=== PATIENT | female | born 1975 | race Caucasian/White ===

== ENCOUNTER 2019-08-07 10:58 | Outpatient (CLI) | payer OTHER, SELFPAY ==
--- NOTE | 2019-08-07 11:00 | MM_ITS ---
WS: [id number] SCREENING DIGITAL MAMMOGRAM WITH CAD HISTORY: SCREENING COMPARISON: 04/25/2018 Bilateral CC and MLO views submitted. Computer aided detection analyzed. Breast composition: There are scattered areas of fibroglandular density. No suspicious masses, microc alcifications or architectural distortion. MM/[place] [id number] IMPRESSION: BI-RADS: 1-Negative FOLLOW UP: 1 Year Follow-up
== END 2019-08-07 10:59 | disposition home or self-care (01) ==
LOC: RADSHAW 10:58
PROVIDERS: PCP Electrodiagnostic Medicine; Visit Provider Electrodiagnostic Medicine
DX: Z12.31 Encounter for screening mammogram for malignant neoplasm of breast (principal)
CPT/HCPCS: 77067

== ENCOUNTER 2019-09-07 14:33 | Outpatient (CLI) | payer OTHER, SELFPAY ==
--- NOTE | 2019-09-07 14:50 | US_ITS ---
WS: [id number] TRANSABDOMINAL PELVIC AND TRANSVAGINAL PELVIC ULTRASOUND HISTORY: PELVIC PERINEAL PAIN/ LLQ ABD PAIN COMPARISON: None available. Uterus: 9.1 cm x 5.5 cm x 4.3 cm. Normal size anteverted uterus. No fibroid or mass. Small nabothian cysts. Endometrium: 1.5 cm. Endometrium is mildly heterogeneous and top normal size. No discrete mass is shania ntified. Right ovary: 3.4 cm x 2.7 cm x 1.8 cm. Small follicles, normal size and vascularity. Left ovary: 2.3 cm x 2.0 cm x 1.8 cm. Small follicles, normal size and vascularity. No free fluid. US/US pelvic with transvaginal IMPRESSION: 1. Endometrium is top normal size and mildly heterogeneous but no mass identif ied. 2. Normal adnexa.
== END 2019-09-07 14:34 | disposition home or self-care (01) ==
PROVIDERS: PCP Electrodiagnostic Medicine; Visit Provider Electrodiagnostic Medicine
DX: R10.2 Pelvic and perineal pain (principal); R10.32 Left lower quadrant pain
CPT/HCPCS: 76830; 76856

== ENCOUNTER → 2019-11-22 15:52 | Outpatient (BNVA) | payer OTHER, SELFPAY | PROVIDERS: PCP Electrodiagnostic Medicine; Visit Provider Nurse Practitioner Women's Health | DX: N93.9 Abnormal uterine and vaginal bleeding, unspecified (principal) | CPT/HCPCS: 76830 ==

== ENCOUNTER 2020-11-18 10:53 | Emergency (ER) | payer OTHER, SELFPAY ==
[2020-11-18] VITALS (19 sets, daily range): BP systolic 132–161; BP diastolic 81–107; PULSE 81–96; RESP 9–21; TEMP 36.9; O2SAT 95–100
--- NOTE | 2020-11-18 11:12 | ED_ITS ---
HPI - Chest Pain General: Chief Complaint: Chest Pain Stated Complaint: HTN/FLUCTUATING;HEART FLUTTERING;MID BACK PAIN Time Seen by Provider: 11/18/20 11:12 History of Present Illness: HPI narrative: Ms Hughes is a 45-year-old lady without significant past medical history presents to the emergency department due to chest discomfort and generalized malaise. Symptom onset was 6 days ago and subacute. She initially noted some discomfort that was on the left po sterior back that radiate around. She additionally notes intermittent episodes of fluttering in her chest and chest discomfort in the middle of her chest which she describes as a burning sensation. She has associated generalized malaise but no other focal specific typical cardiac features. She has checked her blood pressure number of times and it has been elevated. No history of hypertension. She was previously on TXA for abnormal uterine bleeding however is not currently taking that as she completed therapy without improvement in symptoms. She additionally has prescription for Escitalopram however does not take it regularly and estimates last time that she took it was about 3 weeks ago. Overall the intensity of symptoms is mild to moderate. The course has persisted. No other specific exacerbating or alleviating factors identified. She denies similar episodes in the past. She does vape but does not smoke. Negative family history for early cardiac Review of Systems General: Reports: 10 or more systems reviewed and unremarkable except in HPI and below PFS ED PFSH: Medical History (Updated 11/18/20 @ 14:37 by Garret Davis MD) No pertinent past medical history neghx: htn,dm,thyroid,dvt/pe Surgical History H/O tubal ligation (~1997) History of tonsillectomy and adenoidectomy Family History Grandmother Diabetes Maternal grandmother Family history of thyroid problem Maternal grandmother Mother Family history of thyroid problem Family/Other Family history of thyroid problem Maternal aunts Maternal uncles Father Heart disease Hyperlipidemia Hypertension Denies family history of Colon cancer Ovarian cancer Breast cancer Uterine cancer Stroke Social History Additional social history: - Tobacco use: Current everyday vape--no nicotine; Former smoker; Quit 2009 Alcohol use: Social Drug use: Denies Female Reproductive History: Date of last menstrual period: 10/29/20 Physical Exam Narrative: EXAM NARRATIVE: GENERAL/CONSTITUTIONAL - well-appearing. No acute distress. Obese. Eyes - PERRL, no conjunctival injection ENMT - Atraumatic external nose and ears. Moist mucous membranes NECK - supple. trachea midline CARDIOVASCULAR - regular rate and rhythm. Peripheral pulses 2+ and equal RESPIRATORY -clear to auscultation bilaterally. No retractions or accessory muscle use. ABDOMEN/GI - Nontender. Nondistended. No tenderness to percussion or evidence of peritonitis MSK - Extremities without obvious deformity or tenderness to palpation SKIN - Warm, Dry NEURO - alert and appropriately oriented. strength and sensation intact. Moves all extremities equally. PSYCH - Appropriate mood and affect Course ED course: - Patient was seen and evaluated by me at bedside - Patient placed on cardiac monitors, IV access obtained - Initial evaluation notable for no acute distress, nontoxic appearance. - Labs notable for no significant abnormality, no evidence of endorgan dysfunction, troponin negative greater than 6 hours from symptom onset - Imaging notable for no lobar consolidation or pneumothorax - Upon serial reexamination after treatment the patient was similar - Based on patient history, evaluation, labs, and imaging as interpreted the most likely cause of the patient's condition is unclear. I discussed heart score methodology and risk stratification and offered the patient inpatient stress testing. She was comfortable with follow-up. - The results of ED evaluation were discussed with the patient including prescriptions and/or symptomatic cares (if applicable) including appropriate and responsible use, followup plan, and return precautions. The patient verbalized understanding and felt safe for discharge. - Patient discharged in satisfactory condition. Vital Signs: Vital signs: Vital Signs Temperature 98.4 F 11/18/20 11:06 Pulse Rate 81 11/18/20 14:30 Respiratory Rate 20 H 11/18/20 14:30 Blood Pressure 135/90 11/18/20 14:30 Pulse Oximetry 100 11/18/20 14:30 MDM - Chest Pain Medical Records: Attestation: I reviewed the patient's medical records. Lab Data: Attestation: I reviewed the patient's lab results. Labs: Lab Results 11/18/20 11/18/20 11/18/20 11:42 11:42 11:42 WBC 9.1 10^3/uL 10^3/ uL (4.0-10.0) RBC 4.31 10^6/uL 10^6 /uL (4.1-5.3) Hgb 12.4 g/dL g/dL (11.5-15.3) Hct 39.2 % % (37.0-47.0) MCV 91.0 fl fl (81-99) MCH 28.8 pg pg (28.0-34.0) MCHC 31.6 g/dL g/dL (30.0-36.0) RDW 13.4 % % (12.1-15.1) Plt Count 333 10^3/cmm 10^3 /cmm (130-400) MPV 9.7 fL fL (7.4-10.4) Neut % (Auto) 68.3 % % Lymph % (Auto) 20.0 % % [place] % (Auto) 7.7 % % Eos % (Auto) 2.6 % % Baso % (Auto) 0.6 % % Neut # (Auto) 6.20 10^3/uL 10^3 /uL (1.8-7.7) Lymph # (Auto) 1.8 10^3/uL 10^3/ uL (0.8-4.8) [place] # (Auto) 0.7 10^3/uL 10^3/ uL (0.2-0.9) Eos # (Auto) 0.2 10^3/uL 10^3/ uL (0.0-0.8) Baso # (Auto) 0.1 10^3/uL 10^3/ uL (0.0-0.1) Nucleated RBC % (a uto) 0 % % Nucleated RBCs # 0.0 /100WBC /100W BC Sodium 137 mmol/L mmol/L (136-145) Potassium 4.2 mmol/L mmol/L (3.5-5.1) Chloride 101 mmol/L mmol/L (98-107) Carbon Dioxide 26 mmol/L mmol/L (22-29) Anion Gap 14.2 (5-19) BUN 8 mg/dL mg/dL (6-20) Creatinine 0.7 mg/dL mg/dL (0.5-0.9) GFR Calculation 90.1 mL/min mL/mi n (90-130) Glucose 88 mg/dL mg/dL (65-115) Calculated Osmolal ity 282 mOsm/kg L mOs m/kg (285-295) Calcium 9.4 mg/dL mg/dL (8.5-10.5) Total Bilirubin 0.2 mg/dL mg/dL (0.15-1.2) AST 19 U/L U/L (0-32) ALT 29 U/L U/L (0-33) Alkaline Phosphata se 82 IU/L IU/L (35-105) Troponin T Baselin e 6 ng/L ng/L (0-10) Total Protein 6.6 g/dL g/dL (6.6-8.7) Albumin 4.1 g/dL g/dL (3.5-5.2) Globulin 2.5 g/dL g/dL (1.3-4.6) TSH 2.42 uIU/mL uIU/m L (0.27-4.20) Urine Color Urine Appearance Urine pH Ur Specific Gravit y Urine Protein Urine Glucose (UA) Urine Ketones Urine Blood Urine Nitrate Urine Bilirubin Urine Urobilinogen Ur Leukocyte Tiffany ase SARS-CoV-2 Ag (Rap id) 11/18/20 11/18/20 13:08 13:08 WBC RBC Hgb Hct MCV MCH MCHC RDW Plt Count MPV Neut % (Auto) Lymph % (Auto) [place] % (Auto) Eos % (Auto) Baso % (Auto) Neut # (Auto) Lymph # (Auto) [place] # (Auto) Eos # (Auto) Baso # (Auto) Nucleated RBC % (a uto) Nucleated RBCs # Sodium Potassium Chloride Carbon Dioxide Anion Gap BUN Creatinine GFR Calculation Glucose Calculated Osmolal ity Calcium Total Bilirubin AST ALT Alkaline Phosphata se Troponin T Baselin e Total Protein Albumin Globulin TSH Urine Color Straw (Yellow) Urine Appearance Clear (CLEAR) Urine pH 6.5 (5-7) Ur Specific Gravit y 1.005 (1.005-1.030) Urine Protein Neg (Negative) Urine Glucose (UA) Norm (Normal) Urine Ketones Negative (Negative) Urine Blood Neg (Negative) Urine Nitrate Negative (Negative) Urine Bilirubin Neg (Negative) Urine Urobilinogen Norm mg/dL mg/dL (Negative) Ur Leukocyte Tiffany ase Negative (Negative) SARS-CoV-2 Ag (Rap id) Negative (Negative) EKG Data^: EKG 1: Attestation: I personally reviewed and interpreted this EKG as follows: EKG interpretation date: 11/18/20 EKG interpretation time: 11:07 Interpretation: Twelve-lead EKG shows a regular sinus rhythm at a rate of 89. AL interval 145, QRS duration 89, QTc 377. Normal axis, nonspecific ST segment abnormality in lead III. Interpretation: Sinus rhythm, nonspecific ST segment abnormality. EKG 2: Attestation: I personally reviewed and interpreted this EKG as follows: EKG interpretation date: 11/18/20 EKG interpretation time: 13:30 Prior EKG tracings: available for review Interpretation: Twelve-lead EKG shows a regular sinus rhythm at a rate of 81. AL interval 146, QRS duration 102, QTc 409. Normal axis. Interpretation: Sinus rhythm, nonspecific ST segment abnormalities, similar to prior. Discharge Plan Discharge Patient Disposition: Home Clinical Impression: Chest discomfort, Hypertension Condition: Stable Prescriptions: New hydrochlorothiazide 12.5 mg tablet 12.5 mg PO DAILY Qty: 30 RF: 0 Discharge Orders: Discharge ED (Routine); Ordered 11/18/20 Ordered By: Garret Davis Referrals: Jaxson Soto DO [Primary Care Provider] - Discharge Diet: Low Salt, Low Cholesterol and Low Fat Discharge Activity: Resume usual activity Patient Instructions: Chest Pain (ED), Hypertension (ED) Activity Restrictions/Additional Instructions: Thank you for visiting the emergency department. You were seen and evaluated for chest discomfort and associated malaise. The exact cause of your symptoms is unclear. You were found to be hypertensive. As discussed we recommend outpa tient stress test and will start you on an antihypertensive medication. This medication requires repeat blood labs in 1 week to ensure no electrolyte abnormalities have developed. Please follow-up with your primary care provider. Please return to the emergency department for anything that you are concerned about and feel needs emergency department evaluation. Coding Level of Care Code ED Fretted Instrument Repairer for Jw Calvert
--- NOTE | 2020-11-18 11:20 | XRR_ITS ---
PROCEDURE INFORMATION: Exam: XR Chest Exam date and time: 11/18/2020 11:20 AM Age: 45 years old Clinical indication: Pain; Patient HX: Chest discomfort and generalized malaise. Symptom onset was 6 days ago and subacute. She initially noted some discomfort that was on the left posterior back that radiate around. She additionally notes intermittent episodes of fluttering in her chest and chest discomfort in the middle of her chest which she describes as a burning sensation. ; Additional info: SOB TECHNIQUE: Imaging protocol: XR of the chest. Views: 1 view. Total images: 1 COMPARISON: No relevant prior studies available. FINDINGS: Lungs: Unremarkable. No consolidation. Pleural spaces: Unremarkable. No pleural effusion. No pneumothorax. Heart/Mediastinum: Unremarkable. No cardiomegaly. Bones/joints: Unremarkable. XR/XR chest 1V portable [id number] IMPRESSION: No acute findings.
--- NOTE | 2020-11-18 11:20 | ECG_ITS ---
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 Measurements Intervals [place] Rate: 89 P: 27 DE: 145 QRS: 2 QRSD: 89 T: 30 QT: 331 QTc: 403 Interpretive Statements SINUS RHYTHM INTERPRETATION BASED ON A DEFAULT AGE OF 40 YEARS No previous ECG available for comparison Electronically Signed On 11-19-2020 23:14:54 CDT by Mauricio Tobin M.D. [id number] f
[2020-11-18 11:52] LABS: Basophils # 0.1 10^3/uL (0.0-0.1); Basophils % 0.6 %; Eosinophils # 0.2 10^3/uL (0.0-0.8); Eosinophils % 2.6 %; Hematocrit 39.2 % (37.0-47.0); Hemoglobin 12.4 g/dL (11.5-15.3); Lymphocytes # 1.8 10^3/uL (0.8-4.8); Mean Corpuscular HGB Conc 31.6 g/dL (30.0-36.0); Mean Corpuscular Hemoglobin 28.8 pg (28.0-34.0); Mean Platelet Volume 9.7 fL (7.4-10.4); Monocytes # 0.7 10^3/uL (0.2-0.9); Monocytes % 7.7 %; Neutrophils % 68.3 %; Nucleated Red Blood Cells % 0 %; Platelet Count 333 10^3/cmm (130-400); Red Blood Count 4.31 10^6/uL (4.1-5.3); Red Cell Distribution Width 13.4 % (12.1-15.1); White Blood Count 9.1 10^3/uL (4.0-10.0)
[2020-11-18] MEDS: sodium chloride 0.9% 1,000 ML 999 ML IV (12:02)
[2020-11-18 12:15] LABS: Troponin(5th) Baseline 6 ng/L (0-10)
[2020-11-18 12:24] LABS: Alanine Aminotransferase 29 U/L (0-33); Albumin Level 4.1 g/dL (3.5-5.2); Alkaline Phosphatase 82 IU/L (35-105); Anion Gap 14.2 (5-19); Aspartate Amino Transferase 19 U/L (0-32); Blood Urea Nitrogen 8 mg/dL (6-20); Calcium 9.4 mg/dL (8.5-10.5); Carbon Dioxide 26 mmol/L (22-29); Chloride 101 mmol/L (98-107); Globulin 2.5 g/dL (1.3-4.6); Glomerular Filtration Rate 90.1 mL/min (90-130); Glucose 88 mg/dL (65-115); Osmolality Calculated 282 mOsm/kg (285-295); Potassium 4.2 mmol/L (3.5-5.1); Sodium 137 mmol/L (136-145); Thyroid Stimulating Hormone 2.42 uIU/mL (0.27-4.20); Total Bilirubin 0.2 mg/dL (0.15-1.2); Total Protein 6.6 g/dL (6.6-8.7)
[2020-11-18 13:18] LABS: Add Urine Microscopic? NO; Charge for UA Resulting for Rev
--- NOTE | 2020-11-18 13:20 | ECG_ITS ---
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 Measurements Intervals [place] Rate: 81 P: 0 [place]: 146 QRS: -13 QRSD: 102 T: -28 QT: 371 QTc: 433 Interpretive Statements SINUS RHYTHM Compared to ECG 11/18/2020 11:05:38 No significant changes Electronically Signed On 11-19-2020 23:42:56 CDT by Mauricio Tobin M.D. [id number] f
[2020-11-18 13:25] LABS: Bilirubin Urine Neg (Negative); Blood Urine Neg (Negative); Glucose Urine UA Norm (Normal); Ketones Urine Negative (Negative); Leukocyte Esterase Urine Negative (Negative); Nitrate Urine Negative (Negative); Protein Urine Neg (Negative); Specific Gravity, Urine 1.005 (1.005-1.030); Urine Appearance Clear (CLEAR); Urine Color Straw (Yellow); Urobilinogen Urine Norm (Negative); pH Urine 6.5 (5-7)
[2020-11-18 13:53] LABS: SARS Covid-2 Antigen Negative (Negative)
--- NOTE | 2020-11-19 11:25 | DCPLANNER ---
membership manager had message to schedule an outpatient stress test and an echo cardiogram for patient. membership manager faxed signed order to centralized scheduling, who will call patient with appointment information.
--- NOTE | 2020-12-04 14:43 | DCPLANNER ---
Patient has an outpatient stress test scheduled for Tuesday, December 12, 2020 at 10:00.
--- NOTE | 2021-01-08 13:38 | DCPLANNER ---
Patient had an outpatient stress test scheduled for 12.12.20 - patient did attend appointment.
== END 2020-11-18 14:56 | disposition home or self-care (01) ==
PROVIDERS: Emergency Provider Emergency Medicine; PCP Electrodiagnostic Medicine
DX: R07.89 Other chest pain (principal); I10 Essential (primary) hypertension; F17.290 Nicotine dependence, other tobacco product, uncomplicated; Z20.822 Contact with and (suspected) exposure to COVID-19
CPT/HCPCS: 71045; 80053; 81003; 84443; 84484; 85025; 87426; 93005; 96360; 99284; J7030

== ENCOUNTER 2020-12-12 07:11 | Outpatient (CLI) | payer OTHER, SELFPAY ==
[2020-12-12 07:54] VITALS: BMI 37.8
--- NOTE | 2020-12-12 07:56 | NMCV_ITS ---
NM cammy perf SPECT r/s* [id number] Ede Hughes Age: 45 Gender: F : 1975 Exam Date: 12/12/2020 08:47 Ordering Phys: Garret Davis MD Technologist: MARA Morfin Exam Location: [facility] Indications: CHEST PAIN STRESS TEST Please see separate stress test report in [facility] for full findings IMAGE PROTOCOL Rest/Stress 1 Lexiscan Day Radiopharmaceutical Dose (mCi) Administration Site Administered by Rest: Tc-99m 10.8 IV MARA Morfin Sestamibi Stress:Tc-99m 32.7 IV Jessica Portillo, TUBE STATION ATTENDANT Sestamibi Rest: 12-Dec-2020 60 Discovery 630 Stress: 12-Dec-2020 30 Discovery 630 0.4mg Lexiscan. Images obtained in supine and prone position. SPECT RESULTS Technical Quality: Excellent Raw Data Analysis: Normal Image Corrections: No attenuation or motion correction applied Summed Stress Score: 0 Summed Rest Score: 1 Summed Difference Score: 0 PERFUSION FINDINGS There is homogenous radiotracer uptake throughout the myocardium. No evidence of ischemia. FUNCTIONAL RESULTS (calculated via Gated SPECT) Stress Image LV EF (%): 72 Stress EDV (mL):64 TID: 1.26 Stress ESV (mL):18 FUNCTIONAL FINDINGS: There is normal left ventricular systolic function. Elevated TID ratio IMPRESSIONS 1. Normal myocardial perfusion imaging with no evidence of ischemia. 2. Elevated TID ratio could be secondary to subendocardial ischemia 2. LV systolic function is normal Kalin Holley MD (Electronically Signed) Final Date: 12 December 2020 16:14 S
--- NOTE | 2020-12-12 07:56 | ECG_ITS ---
[facility] Test Date: 2020-12-12 Pat Name: Ede Hughes Department: Room: Gender: Female Applied Marine Physics Professor: Violette Aldrich : 1975 Requested By: Garret Davis Order Number: [id number] Parnell MD: Kalin Holley M.D. Interpretive Statements NAME OF STUDY: LEXISCAN SESTAMIBI STRESS TEST INDICATION: [Chest Pain, ] Procedure: At the baseline, the blood pressure was 123/89 mmHg with a heart rate of 78 bpm. The electrocardiogram showed normal sinus rhythm, normal axis with normal ST and T's. The Lexiscan was infused over a period of 20 seconds. A total of 0.4 mg of Lexiscan was infused. The stress phase was continued for a total of 5 minutes. Heart rate was at the end of stress phase was 105 bpm and a blood pressure of 105/75 mmHg. The EKG at the peak infusion revealed since normal sinus rhythm with no significant ST-T wave changes. Sestamibi was injected 20 seconds after the Lexiscan infusion. Blood pressure at the end of recovery phase was 117/78 mmHg with a heart rate of 96 bpm. Conclusion: 1. Normal EKG response to Lexiscan infusion 2. No Lexiscan induced chest pain or cardiac arrhythmia. 3. Normal blood pressure and heart rate response. 4. Sestamibi/sestamibi perfusion scan pending; see separate report. Electronically Signed On 01-05-2021 10:39:32 METAL FURNITURE PANEL COVERER by Kalin Holley M.D. [email or web address]/store/[id number]
[2020-12-12] MEDS: regadenoson 0.4 Mg/5 ml Syringe IVP (09:46)
[2020-12-12 09:47] VITALS: BP 111/85; PULSE 96
== END 2020-12-12 07:12 | disposition home or self-care (01) ==
LOC: CDL 07:12
PROVIDERS: PCP Electrodiagnostic Medicine; Visit Provider Emergency Medicine
DX: R07.9 Chest pain, unspecified (principal); R06.02 Shortness of breath
CPT/HCPCS: 78452; 93017; A9500; J2785

== ENCOUNTER → 2023-01-13 09:56 | Outpatient (BNVA) | payer OTHER, SELFPAY | PROVIDERS: PCP Family Medicine; Visit Provider Clinical Nurse Specialist Adult Health | DX: J06.9 Acute upper respiratory infection, unspecified (principal); R06.02 Shortness of breath | CPT/HCPCS: 87400; 87426 ==

== ENCOUNTER → 2023-08-04 14:01 | Outpatient (BNVA) | payer OTHER, SELFPAY | PROVIDERS: PCP Family Medicine; Visit Provider Family Medicine | DX: G47.33 Obstructive sleep apnea (adult) (pediatric) (principal); Z13.6 Encounter for screening for cardiovascular disorders; I10 Essential (primary) hypertension; R60.9 Edema, unspecified; E03.9 Hypothyroidism, unspecified; R53.83 Other fatigue | CPT/HCPCS: 80053; 80061; 82607; 84443 ==

== ENCOUNTER → 2024-07-30 09:46 | Outpatient (BNVA) | payer OTHER, SELFPAY | PROVIDERS: PCP Family Medicine; Visit Provider Family Medicine | DX: E03.9 Hypothyroidism, unspecified (principal); G47.33 Obstructive sleep apnea (adult) (pediatric); R60.9 Edema, unspecified; R53.83 Other fatigue; N93.9 Abnormal uterine and vaginal bleeding, unspecified | CPT/HCPCS: 80053; 80061; 82306; 84443; 85025 ==